=== PATIENT | male | born 1970 | race Caucasian/White ===

== ENCOUNTER 2021-09-07 21:54 | Outpatient (REF) | payer OTHER, SELFPAY ==
[2021-09-09 12:49] LABS: COVID-19 RT-PCR UVMMC Result Negative (Negative)
== END 2021-09-07 21:55 | disposition home or self-care (01) ==
LOC: LBN 21:54
PROVIDERS: PCP Family Medicine; Visit Provider Nurse Practitioner Family
DX: Z20.822 Contact with and (suspected) exposure to COVID-19 (principal); J02.9 Acute pharyngitis, unspecified
CPT/HCPCS: U0003; 87070

== ENCOUNTER 2022-03-29 03:03 | Outpatient (CLI) | payer OTHER, SELFPAY ==
[2022-03-29 13:10] LABS: CREATININE 0.9 mg/dL (0.70-1.30); Calculated LDL 152 mg/dL (<100); Cholesterol 238 mg/dL (<200); HDL Cholesterol 53 mg/dL (40-60); Potassium 4.8 mmol/L (3.5-5.1); Triglyceride 165 mg/dL (<150)
== END 2022-03-29 03:04 | disposition home or self-care (01) ==
LOC: LOS 03:03
PROVIDERS: PCP Nurse Practitioner Family; Visit Provider Nurse Practitioner Family
DX: E78.5 Hyperlipidemia, unspecified (principal); I10 Essential (primary) hypertension
CPT/HCPCS: 36415; 80061; 82565; 84132

== ENCOUNTER 2022-08-19 07:42 | Day surgery (SDC) | payer OTHER, SELFPAY ==
[2022-08-19 07:45] VITALS: BP 127/79; PULSE 68; RESP 16; TEMP 36.1; O2SAT 96
--- NOTE | 2022-08-19 08:17 | W.COLOREPORT ---
Date of service: 08/19/22 Time of Service: 09:21 Colonoscopy Report Procedure Description: Procedures performed: 1. Colonoscopy Preoperative diagnosis: Screening colonoscopy Postoperative diagnosis: Normal colon Surgeon: Erin Perez Anesthesia: Solo Indication for procedure: 52-year-old man has never had a colonoscopy before. He does not have any symptoms. He does not have family history of colon cancer or polyps. Findings: Normal ileum, no polyps or unusual findings in the colon. Normal rectum. Surveillance/follow-up recommendations: 10 years Complications: None Blood loss: Minimal Prep: Excellent Procedure in detail: Written consent was obtained from the patient who was in agreement with the risks, benefits and indications of the procedure.? We went to the endoscopy suite and laid the patient in left lateral decubitus position.? Anesthesia was administered which was tolerated well.? A timeout was performed and when we are all in agreement we began the procedure. Digital rectal exam and visual examination was performed and within normal limits.? A well?lubricated colonoscope was advanced without difficulty all the way to the cecum identified by the ileocecal valve, and triangular folds and appendiceal orifice.? Terminal ileum was normal.? It was then slowly withdrawn.?? Retroflexion was performed in the rectum.? The findings/interventions are noted above. The scope was then removed and the patient tolerated the procedure well and was then taken back to the PACU in hemodynamically stable condition.
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
[2022-08-19 08:50] VITALS: BMI 32.3
[2022-08-19] MEDS: Lactated Ringers 1,000 ML 80 ML IV (08:59)
[2022-08-19 09:20] VITALS: BP 105/62; PULSE 62; RESP 16; TEMP 36.2; O2SAT 96
--- NOTE | 2022-08-19 09:35 | W.ANESPOSTOP ---
Postoperative Evaluation Date, Time and Location Date Performed: 08/19/22 Time Performed: 09:37 Patient Location: Day Surgery Unit Vital Signs Most Recent Imported Vital Signs: Most Recent Vital Signs Temp Pulse Resp BP Pulse Ox 36.2 C L 62 16 105/62 96 08/19/22 09:20 08/19/22 09:20 08/19/22 09:20 08/19/22 09:20 08/19/22 09:20 Pain Score Most Recent Pain Score: Most Recent Pain Score Pain Level 0 08/19/22 09:20 Assessment Mental Status: Awake (Alert & Oriented to Patient Baseline) Airway and Respiratory Function: Patent airway with normal (patient baseline) respiratory exam Cardiovascular Function: Hemodynamically Stable Hydration Status: Adequately Hydrated Nausea & Vomiting: No Nausea or Vomiting Pain: Pt. Denies Any Pain Peripheral Nerve Block: Patient did not receive a nerve block
[2022-08-19 09:43] VITALS: BP 125/77; PULSE 63; RESP 16; TEMP 36.2; O2SAT 99
== END 2022-08-19 10:13 | disposition home or self-care (01) ==
PROVIDERS: PCP Nurse Practitioner Family; Visit Provider Student in an Organized Health Care Education/Training Program
PROC: 0DJD8ZZ Inspection of Lower Intestinal Tract, Via Natural or Artificial Opening Endoscopic (ICD-10-PCS; CPT 45378; principal; 2022-08-19 09:30)
DX: Z12.11 Encounter for screening for malignant neoplasm of colon (principal)
CPT/HCPCS: 45378

== ENCOUNTER 2024-05-22 11:16 | Emergency (ER) | payer OTHER, SELFPAY ==
[2024-05-22 11:24] VITALS: BP 131/82; PULSE 80; RESP 16; TEMP 37.1; O2SAT 98
--- NOTE | 2024-05-22 11:30 | DI.CT_ITS ---
Exam(s) CT ABDOMEN PELVIS W EXAM: CT ABDOMEN PELVIS W CLINICAL HISTORY: Left lower quadrant pain TECHNIQUE: Imaging Protocol: Axial computed tomography images with coronal and sagittal reformatted images were created and reviewed. CONTRAST MATERIAL: Intravenous: Omnipaque 350 Contrast volume:100 mL Oral: No COMPARISON: No exams were available for comparison FINDINGS: ABDOMEN: Lung Bases: There is a small hiatal hernia. Liver: Normal density. No measurable mass. Portal, Superior Mesenteric, and Splenic Veins: Unremarkable. Gallbladder and Biliary Tract: No radiodense calculus or dilation. Pancreas: Normal density, no abnormal calcifications or inflammatory process. Spleen: Normal. Adrenals: No masses seen. Kidneys: Normal size, contour and axis. No radiodense stones or obstructive uropathy. No masses seen. Abdominal Aorta: Abdominal portion non-dilated. Mild atherosclerotic calcification is present. Bowel: There are diverticula seen in the colon. There is bowel wall thickening seen in the mid sigmo id colon with pericolonic inflammatory changes consistent with acute diverticulitis. There is no mitchell dence of bowel obstruction. Appendix is unremarkable. Peritoneal Cavity: No ascites, collection or mesenteric inflammatory response. No free air.No focal fluid collection is seen to suggest an abscess. Lymph Nodes: Within normal limits. Bones: Within normal limits for the patient's age. Soft Tissues: Unremarkable. PELVIS: Bladder: There is mild thickening of the wall of the urinary bladder particularly superiorly. This ma y be inflammation related to the adjacent inflamed sigmoid colon. No air is seen in the urinary bladd er. Reproductive Organs: Unremarkable as visualized. Lymph Nodes: Within normal limits. Bones: Within normal limits for the patient's age. IMPRESSION: 1. Acute sigmoid diverticulitis. No abscess or free air. 2. Mild inflammation involving the wall of the urinary bladder likely secondary to the adjacent infla med bowel. RADIATION DOSE DELIVERED: 536.59mGy.cm Total DLP DATA REPOSITORY: All CT scans at this facility are submitted to the National Radiology Data Registry (NRDR) Dose Index Registry (DIR) with the [employer] (ACR). RADIATION OPTIMIZATION: All CT scans at this facility use at least one of these dose optimization te chniques: automated exposure control; mA and/or kV adjustment per patient size (includes targeted exa ms where dose is matched to clinical indication); or iterative reconstruction.
[2024-05-22 12:21] LABS: Abs Immature Grans 0.11 10^3/uL (0.0-0.06); Absolute Basophil Count 0.06 10^3/uL (0.0-0.2); Absolute Lymphocyte Count 1.55 10^3/uL (1.2-3.4); Absolute Monocyte Count 1.61 10^3/uL (0.1-0.8); Absolute Neutrophil Count 17.56 10^3/uL (1.2-6.7); Basophils % 0.3 %; HCT 45.1 % (40.0-50.0); HGB 15.5 g/dL (13.5-17.5); Immature Grans % 0.5 %; Lymphocytes % 7.4 %; MCH 31.1 pg (27.0-33.0); MCHC 34.4 % (32.0-36.0); MCV 91 fL (80-95); MPV 9.5 fL (8.0-11.0); Monocytes % 7.7 %; Neutrophils % 84.1 %; Platelet Count 284 10^3/uL (130-400); RBC 4.98 10^6/uL (4.36-5.78); RDW 11.6 % (11.8-14.1); RDW-SD 38.1 fL; WBC 20.88 10^3/uL (4.4-10.8)
[2024-05-22 12:36] LABS: ALT 43 U/L (16-63); AST 25 U/L (15-37); Albumin 3.8 g/dL (3.4-5.0); Alkaline Phosphatase 73 U/L (46-116); Anion Gap 8.3 mmol/L (3-11); BUN 15 mg/dL (7-18); Bilirubin, Total 1.15 mg/dL (0.2-1.0); CO2 28.7 mmol/L (21.0-32.0); Calcium 9.6 mg/dL (8.5-10.1); Chloride 100 mmol/L (98-107); Estimated GFR 88.88 (mL/min/1.73m2); Glucose 110 mg/dL (74-106); Lipase 27 U/L (16-77); Potassium 4.1 mmol/L (3.5-5.1); Sodium 137 mmol/L (136-145); Total Protein 8.4 g/dL (6.4-8.2)
[2024-05-22 12:43] LABS: Diff Comment Agrees w/ Instrument; RBC Morphology Normal
[2024-05-22] MEDS: Omnipaque 350 MG/ML 100 ML BTL IJ (12:51)
[2024-05-22] MEDS: Normal Saline - Diluent 50 ML VIAL IJ (12:52)
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
[2024-05-22] MEDS: Amoxicillin 875/Clav. 125 TAB PO (13:44)
[2024-05-22 13:50] VITALS: BP 134/86; PULSE 85; RESP 20; TEMP 37; O2SAT 98
== END 2024-05-22 13:54 | disposition home or self-care (01) ==
PROVIDERS: Emergency Provider Emergency Medicine; PCP Nurse Practitioner Family
DX: K57.32 Diverticulitis of large intestine without perforation or abscess without bleeding; I10 Essential (primary) hypertension; E78.5 Hyperlipidemia, unspecified; K21.9 Gastro-esophageal reflux disease without esophagitis; Z79.899 Other long term (current) drug therapy
CPT/HCPCS: 80053; 83690; 99285; 74177; 85025; 99284; J3490

== ENCOUNTER 2025-04-11 09:21 | Outpatient (CLI) | payer OTHER, SELFPAY ==
[2025-04-19 19:28] LABS: Testosterone, Free 56.7 pg/mL (35.0-155.0)
== END 2025-04-11 09:22 | disposition home or self-care (01) ==
LOC: LOS 09:21
PROVIDERS: PCP Nurse Practitioner Family; Referring Provider Nurse Practitioner Family; Visit Provider Nurse Practitioner Family
DX: N52.9 Male erectile dysfunction, unspecified (principal); R68.82 Decreased libido
CPT/HCPCS: 36415; 84402; 84403